=== PATIENT | female | born 1985 | race Caucasian/White ===

== ENCOUNTER 2024-08-27 10:08 | Emergency (ER) | payer OTHER ==
[~2024-08-27] VITALS: Ht 165.1 cm; Wt 4.0 kg
[2024-08-27 10:15] VITALS: BP 122/82; PULSE 98; RESP 16; TEMP 98.7; O2SAT 98
[2024-08-27 10:37] LABS: CLARITY,URINE CLOUDY (Clear); COLOR,URINE ORANGE (Yellow); UA COLLECTION TYPE VOIDED
[2024-08-27 10:44] LABS: WBC,URINE TNTC /HPF (0-4)
[2024-08-27 10:45] LABS: BACTERIA,URINE 4+ /HPF (Neg); RBC,URINE NONE SEEN /HPF (0-2); SQUAMOUS EPITHELIAL CELL,UR FEW /LPF (FEW)
[2024-08-27] MEDS: phenazopyridine 100mg tablet PO ONE (11:07)
[2024-08-27] MEDS: CefTRIAXone 1000mg IM Kit (w/lidocaine diluent) IM ONE (11:07)
[2024-08-27] MEDS ORDERED: PHEN-716 PO (11:10)
[2024-08-27] MEDS ORDERED: CEPH-585 PO (11:10)
== END 2024-08-27 11:15 | disposition home or self-care (01) ==
LOC: ER 10:09
DX: N39.0 Urinary tract infection, site not specified (principal); M54.50 Low back pain, unspecified
CPT/HCPCS: 81001; 87088; 87186; 96372; 99283; J0696; 87077